=== PATIENT | female | born 1945 | race Caucasian/White ===

== ENCOUNTER → 2021-08-30 | Outpatient (CLI) | payer MEDICARE, BC ==
[~2021-08-30] MED LIST: LIDOCAINE 1% MDV 20ML VIAL As Ordered ONE
[2021-08-30 14:15] VITALS: BP 150/89
== END ==
LOC: M IRPRO 11:21
PROVIDERS: ATTEND Internal Medicine Hematology & Oncology
DX: R59.9 Enlarged lymph nodes, unspecified (principal); C43.59 Malignant melanoma of other part of trunk; F41.1 Generalized anxiety disorder